=== PATIENT | male | born 1940 | race Caucasian/White ===

== ENCOUNTER → 2016-08-20 | Outpatient (CLI) | payer MEDICARE ==
[~2016-08-20] MED LIST: ASPI325T PO; DIAZ2 PO; FISH1000 PO; LEVO50TA4 PO; TAB-TAB PO
--- NOTE | 2016-08-20 14:54 | RADRPT ---
EXAM DATE/TIME: 08/20/2016 13:49 [place] COMPARISON: No previous studies available for comparison. INDICATIONS : Persistent cough. RADIATION DOSE: 7.06 CTDIvol (mGy) MEDICAL HISTORY : Hernia, hiatal. Gastroesophageal reflux disease. SURGICAL HISTORY : Prostate surgery. ENCOUNTER: Initial ACUITY: 1 week PAIN SCALE: 0/10 LOCATION: chest TECHNIQUE: Volumetric scanning of the chest was performed. Using automated exposure control and adjustment of the mA and/or kV according to patient size, radiation dose was kept as low as reasonab ly achievable to obtain optimal diagnostic quality images. FINDINGS: LUNGS: There is minimal airspace disease at the extreme lung bases. There is a 7 mm solid nodule in the left lung base. There is a 3 mm calcified nodule in the medial left lower lobe and anterior le ft medial lung base. there is a 2 mm solid nodule in the right upper lobe posteriorly. Sub-solid or 2 mm nodules also noted in the subpleural right upper lobe adjacent to the fissure. Ovoid nodule in th e anterior right middle lobe during 7 mm. PLEURAE: There is no pleural thickening or pleural effusion. MEDIASTINUM: Moderate coronary artery calcifications. Heart is otherwise unremarkable. Small left hilar calcified nodes. Otherwise, no significant adenopathy. AXILLAE: Within normal limits. No lymphadenopathy. MUSCULOSKELETAL: Right shoulder arthroplasty in place. No abnormal lytic or blastic bony lesions. MISCELLANEOUS: 1.6 x 2.7 cm cyst in the superior pole of the right kidney. Otherwise, unremarkabl e. CONCLUSION: 1. Evidence for prior granulomatous disease with multiple sub-5 mm bilateral pulmonary nodules that d o not require followup. 2. Two 7 mm solid nodules, in the left lung base and anterior right middle lobe. Consider followup CT examination in 3-[address] at 18-24 months (optional if low risk) per Fleischner 2017 criteria. 3. Very subtle airspace disease at the extreme lung bases likely reflects atelectasis. However, subtl e chronic aspiration cannot be excluded given history of persistent cough. 4. Moderate coronary artery calcifications. Blair Ferrer MD on August 20, 2016 at 14:38 Board Certified Radiologist. This report was verified electronically.
== END ==
LOC: HRSP 12:23
DX: R05 Cough (principal); R06.00 Dyspnea, unspecified; E03.9 Hypothyroidism, unspecified
CPT/HCPCS: 71250; 94060; 94726; 94729